=== PATIENT | male | born 1985 | race Caucasian/White ===

== ENCOUNTER 2017-01-05 03:43 | Emergency (ER) | payer OTHER ==
[~2017-01-05] VITALS: Ht 182.9 cm; Wt 184.6 kg
[~2017-01-05 03:43] MED LIST: BENTYL10 MG PO; FLEXERIL10 MG PO; MEDROL DOSEPAK4 MG PO; NOHOMEMEDS; PERCOCET 5/31 TABLET PO; ULTRAM50 MG PO; VALIUM10 MG PO; VALIUM5 MG PO; ZOFRAN ODT4 MG PO
[2017-01-05 04:33] LABS: BASOPHIL COUNT 0.1 K/uL (0-0.1); EOSINOPHIL (%) 1.6 % (0-5); EOSINOPHIL COUNT 0.2 K/uL (0-0.3); HEMATOCRIT 43.2 % (38.0-50.0); IMMATURE GRANULOCYTE COUNT 0.1 K/uL; INSTRUMENT ABS NEUTROPHIL CT 8.6 K/uL; LYMPHOCYTE COUNT 3.2 K/uL (1.0-2.8); MCH 29.1 PG (29.0-34.0); MCHC 33.1 G/DL (30.0-36.0); MCV 87.8 FL (86-99); MEAN PLAT.VOLUME 11.6 uM^3 (9.0-12.4); MONOCYTE (%) 10.8 % (3-12); MONOCYTE COUNT 1.5 K/uL (0-0.8); NEUTROPHIL (%) 62.8 % (45-76); NEUTROPHIL COUNT 8.6 K/uL (1.8-6.4); PLATELET COUNT 216 K/uL (156-360); RBC DIS.WIDTH-CV 12.6 % (11.8-14.6); RBC DIS.WIDTH-SD 40.1 % (39-53); RED BLOOD COUNT 4.92 M/uL (4.00-5.50); WHITE BLOOD COUNT 13.6 K/uL (4.1-10.2)
[2017-01-05 04:42] LABS: CHLORIDE 104 mEq/L (99-109); POTASSIUM 3.8 mEq/L (3.7-5.4)
[2017-01-05 04:43] LABS: SODIUM 138 mEq/L (136-147)
[2017-01-05 04:45] LABS: GLUCOSE 108 mg/dL (70-99)
[2017-01-05 04:46] LABS: ANION GAP 8 MEQ/L (2-14)
[2017-01-05 04:47] LABS: TOTAL BILIRUBIN 0.4 mg/dL (0.0-1.0)
[2017-01-05 04:48] LABS: ALKALINE PHOSPHATASE 50 IU/L (3-129)
[2017-01-05 04:49] LABS: GFR ESTIMATE (CALCULATED) > 59 mL/min/
[2017-01-05 04:50] LABS: UREA NITROGEN (BUN) 11 mg/dL (9-23)
[2017-01-05 04:52] LABS: LIPASE 14 U/L (1.0-51.0)
[2017-01-05 07:23] LABS: ADD MIUA? NO; BILIRUBIN NEGATIVE; BLOOD NEGATIVE; COLOR YELLOW ((YELLOW)); GLUCOSE (STRIP) NEGATIVE; KETONES NEGATIVE; LEUKOCYTES NEGATIVE; NITRITE NEGATIVE; PROTEIN (STRIP) NEGATIVE; SPECIFIC GRAVITY 1.014 (1.000-1.030); UCUL ADDED? NO; UROBILINOGEN 0.2 MG/DL (0.2-1.0)
[2017-01-05] MEDS ORDERED: CIPRO500 MG PO (09:12)
[2017-01-05] MEDS ORDERED: PERCOCET 5/31 TABLET PO (09:12)
[2017-01-05] MEDS ORDERED: FLAGYL500 MG PO (09:12)
[2017-01-05] MEDS ORDERED: ZOFRAN4 MG PO (09:16)
[2017-01-05 11:22] VITALS: BP 138/80
== END 2017-01-05 11:25 | disposition home or self-care (01) ==
LOC: EME 03:43
PROVIDERS: Emergency Medicine
DX: K81.0 Acute cholecystitis (principal); D72.829 Elevated white blood cell count, unspecified; K76.0 Fatty (change of) liver, not elsewhere classified; E66.9 Obesity, unspecified; Z88.0 Allergy status to penicillin; Z88.8 Allergy status to other drugs, medicaments and biological substances
CPT/HCPCS: 74176; 76705; 80053; 81003; 83690; 85025; 99281; 99285; J1956; J2270; J2405; J7030; S0030

== ENCOUNTER 2017-01-09 20:44 | Emergency (ER) | payer OTHER ==
[~2017-01-09] VITALS: Ht 182.9 cm; Wt 177.8 kg
[~2017-01-09 20:44] MED LIST changes: +CIPRO500 MG PO; +FLAGYL500 MG PO; +ZOFRAN4 MG PO
[2017-01-09 21:10] LABS: HEMATOCRIT 45.6 % (38.0-50.0); MCH 29.1 PG (29.0-34.0); MCHC 33.8 G/DL (30.0-36.0); MCV 86.2 FL (86-99); MEAN PLAT.VOLUME 11.8 uM^3 (9.0-12.4); PLATELET COUNT 239 K/uL (156-360); RBC DIS.WIDTH-CV 12.4 % (11.8-14.6); RBC DIS.WIDTH-SD 38.8 % (39-53); RED BLOOD COUNT 5.29 M/uL (4.00-5.50); WHITE BLOOD COUNT 11.4 K/uL (4.1-10.2)
[2017-01-09 21:26] LABS: CHLORIDE 103 mEq/L (99-109); POTASSIUM 3.9 mEq/L (3.7-5.4); SODIUM 138 mEq/L (136-147)
[2017-01-09 21:28] LABS: GLUCOSE 99 mg/dL (70-99)
[2017-01-09 21:30] LABS: ANION GAP 10 MEQ/L (2-14)
[2017-01-09 21:32] LABS: ALKALINE PHOSPHATASE 49 IU/L (3-129); GFR ESTIMATE (CALCULATED) > 59 mL/min/
[2017-01-09 21:33] LABS: UREA NITROGEN (BUN) 10 mg/dL (9-23)
[2017-01-09 22:52] LABS: ADD MIUA? YES; BILIRUBIN NEGATIVE; BLOOD NEGATIVE; COLOR YELLOW ((YELLOW)); GLUCOSE (STRIP) NEGATIVE; KETONES 80; LEUKOCYTES TRACE; NITRITE NEGATIVE; PROTEIN (STRIP) NEGATIVE; SPECIFIC GRAVITY 1.017 (1.000-1.030); UROBILINOGEN 0.2 MG/DL (0.2-1.0)
[2017-01-09 22:56] LABS: BACTERIA NONE SEEN /HPF; EPITHELIAL CELLS NONE SEEN /HPF; MUCUS TRACE /LPF; RED BLOOD CELLS 0-5 /HPF (0-5); UCUL ADDED? NO; WHITE BLOOD CELLS 0-5 /HPF (0-5)
[2017-01-10] MEDS ORDERED: PERCOCET 5/31 TABLET PO (00:12)
[2017-01-10 00:27] VITALS: BP 135/87
[2017-01-13] MEDS ORDERED: CIPROFLOXACIN500 M1 PO (11:24)
[2017-01-13] MEDS ORDERED: FLAGYL500 MG PO (11:24)
== END 2017-01-10 00:27 | disposition home or self-care (01) ==
LOC: EME 20:44
DX: K80.20 Calculus of gallbladder without cholecystitis without obstruction (principal)
CPT/HCPCS: 76705; 80053; 81003; 85027; 99281; 99284

== ENCOUNTER 2017-01-22 15:48 | Inpatient (IN) | payer OTHER ==
[~2017-01-22] VITALS: Ht 182.9 cm; Wt 169.1 kg
[~2017-01-22 15:48] MED LIST changes: +CIPROFLOXACIN500 M1 PO; +ENDOCET 5-3251 EACH PO
[2017-01-22 17:07] LABS: HEMATOCRIT 45.8 % (38.0-50.0); MCH 29.3 PG (29.0-34.0); MCHC 32.5 G/DL (30.0-36.0); RBC DIS.WIDTH-CV 13.3 % (11.8-14.6); RBC DIS.WIDTH-SD 44.4 % (39-53); RED BLOOD COUNT 5.09 M/uL (4.00-5.50); WHITE BLOOD COUNT 8.2 K/uL (4.1-10.2)
[2017-01-22 17:12] LABS: CHLORIDE 105 mEq/L (99-109); POTASSIUM 4.4 mEq/L (3.7-5.4); SODIUM 137 mEq/L (136-147)
[2017-01-22 17:14] LABS: GLUCOSE 111 mg/dL (70-99)
[2017-01-22 17:15] LABS: ANION GAP 8 MEQ/L (2-14)
[2017-01-22 17:16] LABS: TOTAL BILIRUBIN 12.7 mg/dL (0.0-1.0)
[2017-01-22 17:17] LABS: ALKALINE PHOSPHATASE 176 IU/L (3-129)
[2017-01-22 17:18] LABS: GFR ESTIMATE (CALCULATED) > 59 mL/min/
[2017-01-22 17:19] LABS: UREA NITROGEN (BUN) 8 mg/dL (9-23)
[2017-01-22 17:21] LABS: LIPASE 23 U/L (1.0-51.0)
[2017-01-22 17:43] LABS: CREATINE KINASE 75 IU/L (1-294)
[2017-01-22 17:45] LABS: PHENCYCLIDINE NEGATIVE (25 ng/mL)
[2017-01-22 17:46] LABS: ADD MEDTOX COMMENT Y; AMPHETAMINE NEGATIVE (500 ng/mL); BARBITURATES NEGATIVE (200 ng/mL); BENZODIAZEPINES NEGATIVE (150 ng/mL); COCAINE NEGATIVE (150 ng/mL); INTERNAL CONTROLS VALID? YES; METHADONE NEGATIVE (200 ng/mL); METHAMPHETAMINE NEGATIVE (500 ng/mL); PROPOXYPHENE NEGATIVE (300 ng/mL); TRICYCLIC ANTIDEPRESSANTS NEGATIVE (300 ng/mL)
[2017-01-22 17:48] LABS: SERUM ETHYL ALCOHOL < 10 mg/dL
[2017-01-22 17:48] LABS: ADD MIUA? YES; BILIRUBIN MODERATE; BLOOD NEGATIVE; COLOR AMBER ((YELLOW)); GLUCOSE (STRIP) NEGATIVE; KETONES 20; LEUKOCYTES NEGATIVE; NITRITE NEGATIVE; PROTEIN (STRIP) 100; SPECIFIC GRAVITY 1.027 (1.000-1.030)
[2017-01-22 17:57] LABS: HEMATOLOGY COMMENT 1 SN; MEAN PLAT.VOLUME 12.6 uM^3 (9.0-12.4); PLAT.SUFFICIENCY ADEQUATE; PLATELET COUNT 229 K/uL (156-360)
[2017-01-22 18:04] LABS: OPIATES (MORPHINE) NEGATIVE (100 ng/mL); OPIATES QUANTITATIVE VALUE ND NG/ML; OXYCODONE PRESUMPTIVE POSITIVE (100 ng/mL); THC CANNABINOIDS PRESUMPTIVE POSITIVE (50 ng/mL)
[2017-01-22 18:14] LABS: AMORPHOUS URATES CRYSTALS 1+; BACTERIA RARE /HPF; CASTS NONE SEEN /LPF; CRYSTALS PRESENT; EPITHELIAL CELLS NONE SEEN /HPF; MUCUS 1+ /LPF; RED BLOOD CELLS 0-5 /HPF (0-5); UCUL ADDED? NO; WHITE BLOOD CELLS 0-5 /HPF (0-5)
[2017-01-22 19:09] LABS: ICTOTEST POSITIVE
[2017-01-22 21:43] LABS: INTER. NORMALIZED RATIO 1.2; PROTHROMBIN TIME 12.4 (9.2-11.2); PTT 36.8 (25-32)
[2017-01-23 02:55] VITALS: BP 145/82
[2017-01-23 07:37] LABS: HEMATOCRIT 42.2 % (38.0-50.0); MCH 29.3 PG (29.0-34.0); MCHC 32.5 G/DL (30.0-36.0); MCV 90.2 FL (86-99); MEAN PLAT.VOLUME 13.9 uM^3 (9.0-12.4); PLATELET COUNT 198 K/uL (156-360); RBC DIS.WIDTH-CV 13.7 % (11.8-14.6); RBC DIS.WIDTH-SD 45.3 % (39-53); RED BLOOD COUNT 4.68 M/uL (4.00-5.50); WHITE BLOOD COUNT 7.7 K/uL (4.1-10.2)
[2017-01-23 07:55] LABS: CHLORIDE 105 mEq/L (99-109); POTASSIUM 4.3 mEq/L (3.7-5.4); SODIUM 139 mEq/L (136-147)
[2017-01-23 07:58] LABS: GLUCOSE 88 mg/dL (70-99)
[2017-01-23 07:59] LABS: ANION GAP 11 MEQ/L (2-14)
[2017-01-23 08:00] LABS: TOTAL BILIRUBIN 13.4 mg/dL (0.0-1.0)
[2017-01-23 08:01] LABS: ALKALINE PHOSPHATASE 167 IU/L (3-129); GFR ESTIMATE (CALCULATED) > 59 mL/min/
[2017-01-23 08:02] LABS: UREA NITROGEN (BUN) 9 mg/dL (9-23)
[2017-01-23 08:18] LABS: INTER. NORMALIZED RATIO 1.2; PROTHROMBIN TIME 12.5 (9.2-11.2); PTT 35.1 (25-32)
[2017-01-23 08:39] VITALS: BP 112/55
[2017-01-23 11:24] VITALS: BP 125/83
[2017-01-23 15:49] VITALS: BP 161/92
[2017-01-23 23:07] VITALS: BP 120/66
[2017-01-24 07:52] LABS: ALKALINE PHOSPHATASE 142 IU/L (3-129); ANION GAP 10 MEQ/L (2-14); CHLORIDE 103 MEQ/L (99-109); GFR ESTIMATE (CALCULATED) > 59 mL/min/; GLUCOSE 98 mg/dL (70-99); POTASSIUM 4.1 MEQ/L (3.7-5.4); SAMPLE HEMOLYSIS CHECK 0; SAMPLE ICTERIC CHECK 1; SAMPLE LIPEMIA CHECK 0; SODIUM 138 MEQ/L (136-147); TOTAL BILIRUBIN 5.4 MG/DL (0.0-1.0); UREA NITROGEN (BUN) 11 mg/dL (9-23)
[2017-01-24 12:05] VITALS: BP 121/67
[2017-01-24 16:38] LABS: LIPASE 3059 U/L (1.0-51.0)
[2017-01-24 23:46] VITALS: BP 126/63
[2017-01-25 09:03] LABS: MCH 29.6 PG (29.0-34.0); MCHC 32.1 G/DL (30.0-36.0); MCV 92.2 FL (86-99); MEAN PLAT.VOLUME 13.6 uM^3 (9.0-12.4); PLATELET COUNT 194 K/uL (156-360); RBC DIS.WIDTH-SD 43.8 % (39-53); RED BLOOD COUNT 4.12 M/uL (4.00-5.50)
[2017-01-25 09:04] LABS: WHITE BLOOD COUNT 11.9 K/uL (4.1-10.2)
[2017-01-25 09:27] LABS: LIPASE 674 U/L (1.0-51.0)
[2017-01-25 10:24] LABS: ALKALINE PHOSPHATASE 112 IU/L (3-129); ANION GAP 9 MEQ/L (2-14); CHLORIDE 102 MEQ/L (99-109); GFR ESTIMATE (CALCULATED) > 59 mL/min/; GLUCOSE 90 mg/dL (70-99); POTASSIUM 4.2 MEQ/L (3.7-5.4); SAMPLE HEMOLYSIS CHECK 0; SAMPLE ICTERIC CHECK 1; SAMPLE LIPEMIA CHECK 0; SODIUM 137 MEQ/L (136-147); UREA NITROGEN (BUN) 10 mg/dL (9-23)
[2017-01-25 10:28] LABS: TOTAL BILIRUBIN 3.7 MG/DL (0.0-1.0)
[2017-01-25 16:42] VITALS: BP 156/72
[2017-01-25 23:48] VITALS: BP 132/67
[2017-01-26 07:20] VITALS: BP 156/75
[2017-01-26 08:52] LABS: CHLORIDE 105 mEq/L (99-109); POTASSIUM 3.7 mEq/L (3.7-5.4); SODIUM 139 mEq/L (136-147)
[2017-01-26 08:54] LABS: GLUCOSE 125 mg/dL (70-99)
[2017-01-26 08:55] LABS: ANION GAP 12 MEQ/L (2-14)
[2017-01-26 08:58] LABS: GFR ESTIMATE (CALCULATED) > 59 mL/min/
[2017-01-26 08:59] LABS: UREA NITROGEN (BUN) 10 mg/dL (9-23)
[2017-01-26 09:00] LABS: ALKALINE PHOSPHATASE 102 IU/L (3-129); TOTAL BILIRUBIN 3.2 mg/dL (0.0-1.0)
[2017-01-26 09:01] LABS: LIPASE 159 U/L (1.0-51.0)
== END 2017-01-26 09:46 | disposition home or self-care (01) | DRG 438 ==
LOC: EME 15:48 → EDOF 21:12 → 5EAST 21:12
PROVIDERS: Hospitalist; Internal Medicine; Nurse Practitioner Family; Physician Assistant Medical; Physician Assistant Surgical
PROC: 0F798DZ Dilation of Common Bile Duct with Intraluminal Device, Via Natural or Artificial Opening Endoscopic (ICD-10-PCS; principal; 2017-01-23)
DX: K85.10 Biliary acute pancreatitis without necrosis or infection (principal); K83.1 Obstruction of bile duct; E66.01 Morbid (severe) obesity due to excess calories; Z68.43 Body mass index [BMI] 50.0-59.9, adult; R10.12 Left upper quadrant pain; F12.10 Cannabis abuse, uncomplicated; K76.0 Fatty (change of) liver, not elsewhere classified; K57.30 Diverticulosis of large intestine without perforation or abscess without bleeding; Z90.49 Acquired absence of other specified parts of digestive tract
CPT/HCPCS: 74000; 74177; 74181; 74330; 76705; 80053; 81003; 82550; 83690; 84999; 85027; 85610; 85730; 87081; 94799; 99281; 99285; C1757; C1769; C2625; G0480; J0330; J0500; J1100; J1200; J1885; J1956; J2250; J2270; J2405; J3010; J7030; J7120; S0028

== ENCOUNTER 2017-03-22 18:27 | Inpatient (IN) | payer OTHER ==
[~2017-03-22] VITALS: Ht 182.9 cm; Wt 183.2 kg
[~2017-03-22 18:27] MED LIST changes: -LEVAQUIN500 MG PO; -LEVAQUIN750 MG PO; -PREVACID 24HR15 MG PO
[2017-03-22 19:03] LABS: HEMATOCRIT 44.2 % (38.0-50.0); MCH 29.4 PG (29.0-34.0); MCHC 33.3 G/DL (30.0-36.0); MCV 88.4 FL (86-99); RBC DIS.WIDTH-CV 12.2 % (11.8-14.6); RBC DIS.WIDTH-SD 39.6 % (39-53); WHITE BLOOD COUNT 10.9 K/uL (4.1-10.2)
[2017-03-22 19:13] LABS: CHLORIDE 105 mEq/L (99-109); POTASSIUM 4.1 mEq/L (3.7-5.4); SODIUM 138 mEq/L (136-147)
[2017-03-22 19:15] LABS: GLUCOSE 118 mg/dL (70-99)
[2017-03-22 19:17] LABS: ANION GAP 9 MEQ/L (2-14); TOTAL BILIRUBIN 2.1 mg/dL (0.0-1.0)
[2017-03-22 19:19] LABS: ALKALINE PHOSPHATASE 80 IU/L (3-129); GFR ESTIMATE (CALCULATED) > 59 mL/min/
[2017-03-22 19:20] LABS: UREA NITROGEN (BUN) 13 mg/dL (9-23)
[2017-03-22 19:22] LABS: LIPASE 14 U/L (1.0-51.0)
[2017-03-22 19:58] LABS: MEAN PLAT.VOLUME 11.9 uM^3 (9.0-12.4); PLAT.SUFFICIENCY ADEQUATE; PLATELET COUNT 177 K/uL (156-360)
[2017-03-22] MEDS ORDERED: PREVACID 24HR15 MG PO (22:47)
[2017-03-23 02:18] LABS: BILIRUBIN NEGATIVE; BLOOD NEGATIVE; COLOR YELLOW ((YELLOW)); GLUCOSE (STRIP) NEGATIVE; KETONES NEGATIVE; LEUKOCYTES NEGATIVE; NITRITE NEGATIVE; PROTEIN (STRIP) NEGATIVE; SPECIFIC GRAVITY 1.023 (1.000-1.030)
[2017-03-23 02:19] LABS: ADD MIUA? NO; UCUL ADDED? NO
[2017-03-23 06:33] LABS: CHLORIDE 104 mEq/L (99-109); POTASSIUM 3.8 mEq/L (3.7-5.4); SODIUM 135 mEq/L (136-147)
[2017-03-23 06:35] LABS: GLUCOSE 156 mg/dL (70-99)
[2017-03-23 06:36] LABS: ANION GAP 9 MEQ/L (2-14)
[2017-03-23 06:39] LABS: ALKALINE PHOSPHATASE 73 IU/L (3-129); GFR ESTIMATE (CALCULATED) > 59 mL/min/; TOTAL BILIRUBIN 3.4 mg/dL (0.0-1.0)
[2017-03-23 06:40] LABS: UREA NITROGEN (BUN) 9 mg/dL (9-23)
[2017-03-23 07:53] VITALS: BP 142/82
[2017-03-23 12:01] VITALS: BP 121/62
[2017-03-23 15:46] VITALS: BP 109/56
[2017-03-23 17:43] VITALS: BP 129/69
[2017-03-23 20:14] VITALS: BP 112/58
[2017-03-23 23:40] VITALS: BP 117/62
[2017-03-24 02:53] VITALS: BP 134/68
[2017-03-24 06:49] LABS: EOSINOPHIL (%) 2.6 % (0-5); EOSINOPHIL COUNT 0.2 K/uL (0-0.3); HEMATOCRIT 37.5 % (38.0-50.0); IMMATURE GRANULOCYTE (%) 0.6 % (0.0-0.7); LYMPHOCYTE COUNT 0.7 K/uL (1.0-2.8); MCH 30.3 PG (29.0-34.0); MCHC 33.9 G/DL (30.0-36.0); MCV 89.5 FL (86-99); MEAN PLAT.VOLUME 12.4 uM^3 (9.0-12.4); MONOCYTE (%) 13.3 % (3-12); MONOCYTE COUNT 0.9 K/uL (0-0.8); NEUTROPHIL (%) 72.8 % (45-76); PLATELET COUNT 129 K/uL (156-360); RBC DIS.WIDTH-CV 12.6 % (11.8-14.6); RBC DIS.WIDTH-SD 41.5 % (39-53); RED BLOOD COUNT 4.19 M/uL (4.00-5.50); WHITE BLOOD COUNT 6.9 K/uL (4.1-10.2)
[2017-03-24 07:00] LABS: ALKALINE PHOSPHATASE 69 IU/L (3-129); ANION GAP 11 MEQ/L (2-14); CHLORIDE 107 MEQ/L (99-109); GFR ESTIMATE (CALCULATED) > 59 mL/min/; POTASSIUM 3.7 MEQ/L (3.7-5.4); SAMPLE HEMOLYSIS CHECK 0; SAMPLE ICTERIC CHECK 1; SAMPLE LIPEMIA CHECK 0; SODIUM 140 MEQ/L (136-147); TOTAL BILIRUBIN 4.2 MG/DL (0.0-1.0); UREA NITROGEN (BUN) 8 mg/dL (9-23)
[2017-03-24 07:01] LABS: GLUCOSE 98 mg/dL (70-99)
[2017-03-24 08:01] VITALS: BP 132/73
[2017-03-24 11:45] VITALS: BP 145/83
[2017-03-24] MEDS ORDERED: LEVAQUIN500 MG PO (12:12)
[2017-03-24] MEDS ORDERED: FLAGYL500 MG PO (12:12)
[2017-03-24] MEDS ORDERED: LEVAQUIN750 MG PO (12:17)
== END 2017-03-24 12:29 | disposition home or self-care (01) | DRG 445 ==
LOC: EME 18:27 → EDOF 23:47 → 5EAST 03-23 16:40
PROVIDERS: Hospitalist; Internal Medicine; Physician Assistant
DX: K83.1 Obstruction of bile duct (principal); K83.0 Cholangitis; E66.01 Morbid (severe) obesity due to excess calories; Z82.49 Family history of ischemic heart disease and other diseases of the circulatory system; Z68.43 Body mass index [BMI] 50.0-59.9, adult; R00.0 Tachycardia, unspecified; R19.7 Diarrhea, unspecified; R53.81 Other malaise; R74.0 Nonspecific elevation of levels of transaminase and lactic acid dehydrogenase [LDH]; Z90.49 Acquired absence of other specified parts of digestive tract
CPT/HCPCS: 74177; 80048; 80053; 80076; 81003; 83605; 83690; 85025; 85027; 87040; 99281; 99285; J0692; J1650; J1956; J2405; J3010; J7030; J7042; J7050; S0028; S0030

== ENCOUNTER → 2017-03-22 | Outpatient (CLI) | payer OTHER ==
[~2017-03-22] VITALS: Ht 182.9 cm; Wt 172.0 kg
[~2017-03-22] MED LIST changes: +LEVAQUIN500 MG PO; +LEVAQUIN750 MG PO; +PREVACID 24HR15 MG PO
== END | disposition home or self-care (01) ==
LOC: AMB 08:59
DX: K80.51 Calculus of bile duct without cholangitis or cholecystitis with obstruction (principal); E66.01 Morbid (severe) obesity due to excess calories; R74.0 Nonspecific elevation of levels of transaminase and lactic acid dehydrogenase [LDH]; Z90.49 Acquired absence of other specified parts of digestive tract; F12.90 Cannabis use, unspecified, uncomplicated; Z88.0 Allergy status to penicillin
CPT/HCPCS: 74329; 87081; C1757; C1769; J1170; J2250; J3010